=== PATIENT | female | born 1985 | race Caucasian/White ===

== ENCOUNTER → 2016-12-28 | Outpatient (CLI) | payer BC ==
--- NOTE | 2016-12-28 09:34 | KCIC ---
ABDOMEN COMPLETE History: Abdominal pain on the left side Comparison: None. Findings: Multiple sonographic images of the abdomen are submitted. There is no abnormality of the visualized pancreas. Abdominal aortic caliber is within normal limits up to 2.1 cm proximally. There is segmental visualization of the inferior vena cava. Hepatic echotexture is within normal limits, no focal hepatic lesion demonstrated. Right lobe liver measured 16.8 cm longitudinal. Common bile duct is within normal limits up to 0.5 cm. Right kidney measured 10.6 x 4 x 4.7 cm. Left kidney measured 11.6 x 5 x 5.1 cm. There is no hydronephrosis of either kidney. There is normal directional flow of the main portal vein. Gallbladder is present without intraluminal abnormality, wall thickening, pericholecystic fluid. Spleen measured 10.9 cm. Bowel gas is seen in the area of pain on the left side. No free fluid is demonstrated. Impression: 1. No significant abnormality is demonstrated. Electronically signed by: Bruno White MD (12/28/2016 9:31 AM) [facility]-KCIC1
--- NOTE | 2016-12-29 11:05 | KCIC ---
Abdominal arterial Doppler ultrasound HISTORY: Abdominal pain. TECHNIQUE: Grayscale, duplex and color Doppler ultrasound performed. FINDINGS: Aorta: Patent. No evidence of aneurysm. Superior mesenteric artery: Velocities range from 85 cm/s to 111 cm/s. Celiac artery: 193 cm/s. Hepatic artery: 114 cm/s with hepatopetal flow. IMPRESSION: No significant Doppler abnormality is detected. Electronically signed by: Luis Cotton MD (12/29/2016 11:02 AM) [facility]
== END | disposition home or self-care (01) ==
LOC: KCIC US 07:47
PROVIDERS: ATTEND Physician Assistant
DX: R10.9 Unspecified abdominal pain (principal)
CPT/HCPCS: 76700; 76770

== ENCOUNTER → 2017-01-26 | Day surgery (SDC) | payer BC ==
[~2017-01-26] MED LIST: HYDROmorphone 2 MG/ML VIAL IV PRN; IV RINGERS,LACTATED 1000ML 1,000 ML IV SCH; LIDOCAINE 1% PF 2 ML VIAL. ID PRN; MIDAZOLAM HCL/PF 2 MG/2 ML VIAL. IV PRN; MONT10TA9 PO; MORPHINE SULFATE 2 MG/ML DISP.SYRIN. IV PRN; ONDANSETRON PF 4 MG/2 ML VIAL. IV PRN; PROCHLORPERAZINE 10 MG/2 ML VIAL. IV PRN; PROPOFOL 40 ML IV ONE; fentaNYL PF VIAL 100 MCG/2 ML VIAL IV PRN
[2017-01-26 10:06] LABS: NEG OBC UR NEG; POS OBC UR POS
--- NOTE | 2017-01-26 10:55 | PREOP HP ---
DATE OF SERVICE: 01/26/2017 REQUESTING PHYSICIAN: Ernestina Rice MD. PRIMARY CARE PHYSICIAN: Ernestina Rice MD. REASON FOR PROCEDURE: Left upper quadrant pain and history of celiac disease. HISTORY OF PRESENT ILLNESS: This is a 31-year-old female who presents with left upper quadrant pain. She has a diagnosis of celiac disease by duodenal biopsy at [facility] in 2016. PAST MEDICAL HISTORY: 1. Anxiety. 2. Celiac. 3. Asthma. 4. Depression. FAMILY MEDICAL HISTORY: Diabetes. ALLERGIES: SULFA. SOCIAL HISTORY: She is a social drinker and denies tobacco or IV drug abuse. MEDICATIONS: 1. Iron. 2. Singulair. 3. Allergy medication. 4. Multivitamin. PAST SURGICAL HISTORY: Eye surgery and tonsillectomy. REVIEW OF SYSTEMS: A 13-point review of systems was done. It is positive for fatigue, unsteadiness, nervousness and hearing changes. PHYSICAL EXAMINATION: VITAL SIGNS: She is afebrile and her vital signs are stable. GENERAL: She is a thin female in no apparent distress. HEENT: Oropharynx is clear. CARDIOVASCULAR: S1, S2. LUNGS: Clear. ABDOMEN: Normoactive bowel sounds, soft, nontender, nondistended. EXTREMITIES: No edema. NEUROLOGIC: Awake, alert and oriented x 3. ASSESSMENT AND PLAN: 1. Left upper quadrant abdominal pain. Undergo upper endoscopy for further evaluation. Risks and benefits including bleeding, perforation, non-diagnosis and sedation were explained. She has agreed to proceed. 2. Gastroesophageal reflux disease. She describes the evaluate with an EGD. 3. Celiac disease. Plan to take biopsy during her procedure, although she . Thank you for allowing me to participate in the care of this patient. KADIE GÓMEZ MD DR: TOM/juan a JOB#: [id number] / [id number]
--- NOTE | 2017-01-27 16:48 | PATHOLOGY ---
PATHOLOGY REPORT * * * * * * * * FINAL DIAGNOSIS: A. Duodenal biopsy, second portion duodenum: - No significant pathologic abnormalities. B. Duodenal biopsy, duodenal bulb: - Lymphoid aggregates, several. C. Gastric biopsy, antrum: - Consistent with reactive gastropathy, with mild chronic inflammation. D. Esophageal biopsy, distal esophagus: - Segments of gastric mucosa showing superficial congestion, mild edema, and slight chronic inflammation. (JPM:liam; 01/27/2017) COMMENT: Sections of the second portion duodenal biopsy reveal segments of duodenal and small intestine mucosa. Where best oriented, the mucosal villi appear normal. There are no sprue-like changes or significant inflammatory changes. Sections of the duodenal bulb biopsy reveal segments of duodenal mucosa containing several lymphoid aggregates. The mucosal villi otherwise appear normal and show no sprue-like changes or significant inflammatory changes. Sections of the gastric antral biopsy show congestion, mild foveolar hyperplasia, and mild chronic inflammation. An immunoperoxidase stain for Helicobacter is obtained. No Helicobacter organisms are identified. The findings are consistent with a mild reactive gastropathy. Sections of the distal esophageal biopsy reveal segments of gastric body mucosa showing superficial congestion, mild edema, and slight chronic inflammation. There is no squamous esophageal mucosa. There is no evidence of Sun's change, dysplasia, or malignancy. Special stain performed: Immunoperoxidase stain for Helicobacter on C1. (JPM:liam; 01/27/2017) REPORT ELECTRONICALLY SIGNED BY: Bruno Madrigal M.D. DATE/TIME: 01/27/2017 16:47 * * * * * * * * GROSS PATHOLOGY: A. Received in formalin labeled "Yamilka Edgewood, second portion of duodenum BX," are 4 segments of oscar soft tissue measuring 1.3 x 0.2 x 0.3 cm in aggregate dimensions and ranging from 0.2 to 0.4 cm in maximum dimension. The specimen is submitted entirely in cassette A1. B. Received in formalin labeled "Yamilka Edgewood, duodenal bulb BX," are 3 segments of oscar soft tissue measuring 0.9 x 0.2 x 0.3 cm in aggregate dimensions and ranging from 0.3 to 0.3 cm in maximum dimension. The specimen is submitted entirely in cassette B1. C. Received in formalin labeled "Yamilka Edgewood, gastric antrum BX," are 2 segments of oscar soft tissue measuring 0.5 x 0.3 x 0.3 cm in aggregate dimensions and ranging from 0.3 to 0.3 cm in maximum dimension. The specimen is submitted entirely in cassette C1. D. Received in formalin labeled "Yamilka Queen, distal esophagus BX," are 2 segments of oscar soft tissue measuring 0.5 x 0.4 x 0.3 cm in aggregate dimensions and ranging from 0.2 to 0.3 cm in maximum dimension. The specimen is submitted entirely in cassette D1. (TSD; 01/26/2017) INITIAL CPT CODE(S): A; 53129 B; 27577 C; 48339, 33025 D; 02355 Professional services [place] [facility] [place] [address] Technical services performed by [facility] at [address] [place] [address], [address] [address]. SPECIMEN(S) RECEIVED: A.Second portion of duodenum biopsy B.Duodenal bulb biopsy C.Gastric antrum biopsy D.Distal esophagus biopsy CLINICAL HISTORY: GERD PATIENT: YAMILKA QUEEN /AGE: 811/20/1985 (Age: 31) PATIENT #: [id number] ALT CASE #: SPECIMEN COLLECTION DATE: 01/26/2017 SPECIMEN RECEIVED DATE: 01/26/2017 [facility] - [address] [place] [address] - PHONE: [phone] * * * END OF REPORT * * *
== END | disposition home or self-care (01) ==
LOC: ENDOS 07:59
PROVIDERS: ATTEND Internal Medicine Gastroenterology
DX: K21.0 Gastro-esophageal reflux disease with esophagitis (principal); F41.9 Anxiety disorder, unspecified; F32.9 Major depressive disorder, single episode, unspecified; Z88.2 Allergy status to sulfonamides
CPT/HCPCS: 43239; 81025; J2704; 88305; 88342

== ENCOUNTER → 2017-03-21 | Outpatient (CLI) | payer BC ==
[~2017-03-21] MED LIST changes: -HYDROmorphone 2 MG/ML VIAL IV PRN; -IV RINGERS,LACTATED 1000ML 1,000 ML IV SCH; -LIDOCAINE 1% PF 2 ML VIAL. ID PRN; -MIDAZOLAM HCL/PF 2 MG/2 ML VIAL. IV PRN; -MORPHINE SULFATE 2 MG/ML DISP.SYRIN. IV PRN; -ONDANSETRON PF 4 MG/2 ML VIAL. IV PRN; -PROCHLORPERAZINE 10 MG/2 ML VIAL. IV PRN; -PROPOFOL 40 ML IV ONE; +SINCALIDE 1.13 MCG in IV NORMAL SALINE 50ML 30 ML IV ONE; -fentaNYL PF VIAL 100 MCG/2 ML VIAL IV PRN
--- NOTE | 2017-03-21 10:37 | RAD ---
Indication: Abdominal pain. The patient was administered 5.5 mCi of technetium 99m Choletec and imaging over the abdomen was performed. Next, the patient was administered 1.1 mcg of Kinevac and a gallbladder ejection fraction was calculated. There is homogeneous uptake of activity by the liver with prompt excretion of activity into the gallbladder and common duct. There is passage of activity into the small bowel. Gallbladder ejection fraction is normal at 56%. Impression: Normal HIDA scan and gallbladder ejection fraction.
== END | disposition home or self-care (01) ==
LOC: NM 15:36
PROVIDERS: ATTEND Physician Assistant
DX: R10.12 Left upper quadrant pain (principal)
CPT/HCPCS: 78226; 96374; A9537; J2805

== ENCOUNTER → 2021-01-21 | Day surgery (SDC) | payer BC ==
[~2021-01-21] VITALS: Ht 172.7 cm; Wt 50.0 kg
[~2021-01-21] MED LIST changes: +EMTR1TAB8 PO; +IV RINGERS,LACTATED 1000ML 1,000 ML IV SCH; +LIDOCAINE 2% PF 5 ML VIAL. ONE; +LORA10CA PO; +MONT10TA49 PO; -MONT10TA9 PO; +PROPOFOL 10 MG/ML (20ML) VIAL. IV ONE; -SINCALIDE 1.13 MCG in IV NORMAL SALINE 50ML 30 ML IV ONE
[2021-01-21 09:56] VITALS: BP 109/71
[2021-01-21 11:45] VITALS: BP 101/56
--- NOTE | 2021-01-22 17:07 | PATHOLOGY ---
[facility] Accession Number: [id number] . 01 Material submitted: . PART A: small bowel - SMALL BOWEL BIOPSY PART B: gastrointestinal site - GASTRIC ANTRUM AND BODY BIOPSY PART C: esophagus - DISTAL ESOPHAGUS BIOPSY. Modifiers: distal PART D: ileum - TERMINAL ILEUM BIOPSY PART E: colon - RIGHT COLON BIOPSY. Modifiers: right PART F: colon - LEFT COLON BIOPSY. Modifiers: left . 01 Clinical history: . N/V, WT LOSS, DIARRHEA EGD/COLONOSCOPY . 02 Diagnosis: A. Small bowel biopsies: - No diagnostic abnormalities. . B. Gastric biopsies, gastric body and gastric antrum: - Chronic gastritis, mild. . C. Esophageal biopsies, distal esophagus: - Segment of mildly hyperplastic squamous esophageal mucosa and segments of esophagogastric and gastric mucosa showing focal active chronic inflammation. . D. Terminal ileum biopsies: - Small intestine mucosa showing hyperplastic mucosal-associated lymphoid tissue. . E. Colonic mucosa, right colon biopsies: - No diagnostic abnormalities, with two hyperplastic mucosal-associated lymphoid aggregates. . F. Colonic mucosa, left colon biopsies: - No diagnostic abnormalities. . (JPM:adama; 01/22/2021) MBR 01/22/2021 1651 Local . 02 Comment: Sections of the small bowel biopsy reveal segments of duodenal and small intestine mucosa with focally prominent submucosal Joo glands. Where best oriented, mucosal villi show no sprue-like changes or significant inflammatory changes. . Sections of the gastric biopsy reveal segments of gastric body and antral/body transition mucosa showing congestion and very mild chronic inflammation. A properly controlled immunoperoxidase stain for Helicobacter is negative for Helicobacter organisms. . Sections of the distal esophageal biopsy reveal a single tangentially oriented segment of hyperplastic squamous esophageal mucosa along with several segments of esophagogastric and gastric mucosa showing focal active, mild to moderate chronic inflammation. There is no evidence of Sun's change, dysplasia or malignancy. . Sections of the terminal ileum biopsy reveal segments of small intestine mucosa with hyperplastic mucosal-associated lymphoid tissue. There are no sprue-like changes. . Sections of the right colon and left colon biopsies appear similar and reveal segments of colonic mucosa. The right colon biopsy shows two hyperplastic mucosal-associated lymphoid aggregates. There is no evidence of a chronic destructive colitis, lymphocytic colitis, or collagenous colitis. . (JPM:adama; 01/22/2021) . . . Special stain performed: Immunoperoxidase stain for Helicobacter on B1 . 02 Electronically signed: . Bruno Madrigal MD, Pathologist NPI- [id number] . 01 Gross description: . A. The specimen is submitted in formalin, labeled "Rockwood, Yamilka, small bowel biopsy". Received are 4 segments of pale oscar tissue ranging in size from 0.3 to 0.4 cm in maximum dimensions. The specimen is submitted entirely in cassette A1. . B. The specimen is submitted in formalin, labeled "Rockwood, Yamilka, gastric antrum and body biopsy". Received are 3 segments of pale oscar tissue ranging in size from 0.3 to 0.6 cm in maximum dimensions. The specimen is submitted entirely in cassette B1. . C. The specimen is submitted in formalin, labeled "Rockwood, Yamilka, distal esophagus biopsy". Received are 3 segments of pale oscar tissue ranging in size from 0.3 to 0.4 cm in maximum dimensions. The specimen is submitted entirely in cassette C1. . D. The specimen is submitted in formalin, labeled "Rockwood, Yamilka, terminal ileum biopsy". Received are 2 segments of pale oscar tissue ranging in size from 0.3 to 0.5 cm in maximum dimensions. The specimen is submitted entirely in cassette D1. . E. The specimen is submitted in formalin, labeled "Rockwood, Yamilka, right colon biopsy". Received are 4 segments of pale oscar tissue ranging in size from 0.3 to 0.4 cm in maximum dimensions. The specimen is submitted entirely in cassette E1. . F. The specimen is submitted in formalin, labeled "Rockwood, Yamilka, left colon biopsy". Received are 4 segments of pale oscar tissue ranging in size from 0.3 to 0.4 cm in maximum dimensions. The specimen is submitted entirely in cassette F1. ([facility]; 01/21/2021) NRI/NRI 01/21/2021 2013 Local . 02 Pathologist provided ICD-10: K29.50, K20.90, R63.4, R19.7, Z12.11 . 02 CPT . 658763, 324265, 307020, 362390, 697825, 590780, [id number] Specimen Comment: A courtesy copy of this report has been sent to [phone], [phone] Specimen Comment: [id number] Specimen Comment: Report sent to / DR Silvano ROY Specimen Comment: A duplicate report has been generated due to demographic updates. Performed at: 01 [facility] [address] [facility] [address], [place] [id number] MD Salomón Saleem MD Phone: [phone] Performed at: 02 [facility] [address] [place], [place] [id number] MD Bruno Madrigal MD Phone: [phone]
== END | disposition home or self-care (01) ==
LOC: ENDOS 09:28
PROVIDERS: ATTEND Internal Medicine Gastroenterology
DX: K52.9 Noninfective gastroenteritis and colitis, unspecified (principal); R63.4 Abnormal weight loss; K29.50 Unspecified chronic gastritis without bleeding; K31.89 Other diseases of stomach and duodenum; K63.89 Other specified diseases of intestine; K64.0 First degree hemorrhoids; K21.00 Gastro-esophageal reflux disease with esophagitis, without bleeding; R11.2 Nausea with vomiting, unspecified; K90.0 Celiac disease; J45.909 Unspecified asthma, uncomplicated; F41.9 Anxiety disorder, unspecified; F32.9 Major depressive disorder, single episode, unspecified; Z79.899 Other long term (current) drug therapy; Z98.890 Other specified postprocedural states; Z88.2 Allergy status to sulfonamides
CPT/HCPCS: 43239; 45380; 81025; J2704